=== PATIENT | female | born 1980 | race Caucasian/White ===

== ENCOUNTER 2017-09-08 05:03 | Emergency (ER) | payer OTHER ==
[~2017-09-08] VITALS: Ht 170.2 cm; Wt 90.7 kg
[~2017-09-08 05:03] MED LIST: ACE3 PO; AUG875 PO; AUGMENTIN; BUTA-324 PO; CLOM50TA18 PO; ESC10 PO; HCG INJECTION; IBU600 PO; IBU800 PO; LEVO50TA86 PO; MUCINEX; NORG1TAB74 PO; OMEP-218 PO; PANT20TA27 PO; TEM15 PO
--- NOTE | 2017-09-08 05:22 | ER Report ---
History and Physical Time Seen By MD: 05:21 Hx. of Stated Complaint: FEVER, FLU LIKE SYMPTOMS SINCE . EVERYONE AT [facility] WAS DIAGNOSISED WITH STREP HPI/ROS CHIEF COMPLAINT: Sore throat, fevers, body aches HISTORY OF PRESENT ILLNESS: 30 [id number] female ill for approximately 6 days. She was exposed to strep and numerous people just after . He's been having a sore throat for the last 3 days. She's having nasal congestion and purulent nasal discharge. She notes fever, bodyaches and gland swelling in her neck. She is having pain with swallowing. Patient notes severe nausea last night but did not vomit. Patient states she's been taking a lot of over- the-counter medications, Tylenol and ibuprofen without improvement of her symptoms. Patient denies dysuria. REVIEW OF SYSTEMS: Respiratory: As above. Cardiovascular: No chest pain, no palpitations. Gastrointestinal: No vomiting, no abdominal pain. Musculoskeletal: No back pain. Allergies: Coded Allergies: No Known Drug Allergies (Verified , 09/08/17) Home Meds Active Scripts Oxycodone Hcl/Acetaminophen (PERCOCET 5-325 MG TABLET) 1 Each Tablet, 1 EACH PO Q4-6H Y for pain or cough suppression, #10 Prov:IRENE ORTIZ DO 09/08/17 Promethazine Hcl (PROMETHAZINE HCL) 25 Mg Tablet, 25 MG PO Q4H Y for nausea or cough suppression, #14 TAB Prov:IRENE ORTIZ DO 09/08/17 Amoxicillin (AMOXICILLIN) 875 Mg Tablet, 1 TAB PO Q12H, #14 TAB Prov:IRENE ORTIZ DO 09/08/17 Reported Medications Norgestimate-Ethinyl Estradiol (SPRINTEC) 1 Each Tablet, 1 EACH PO 09/09/13 Levothyroxine Sodium (LEVOTHYROXINE SODIUM) 50 Mcg Tablet, 50 MCG PO QDAY 09/09/13 Pantoprazole Sodium (PANTOPRAZOLE SODIUM) 20 Mg Tablet.dr, 20 MG PO QDAY, TAB.SR TAKE 1 TABLET DAILY. 09/09/13 Ibuprofen (Motrin) 800 Mg Tab, 800 MG PO Q8H, #30 TAB 0 Refills TAKE 1 TABLET BY MOUTH EVERY 8 HOURS. TAKE WITH FOOD. 01/16/11 Escitalopram Oxalate (Lexapro) 10 Mg Tab, 10 MG PO QDAY, 0 Refills 05/20/09 Past Medical/Surgical History Patient has a past medical history of headaches, hypothyroidism, depression. Patient has a surgical history of a tonsillectomy and adenoidectomy. Reviewed Nurses Notes: Yes Old Medical Records Reviewed: Yes Hx Smoking: No Hx Substance Use Disorder: No Hx Alcohol Use: Yes (1 weekly) Constitutional Vital Sign - Last 24 Hours 09/08/17 09/08/17 09/08/17 09/08/17 05:09 05:12 05:30 05:35 Temp 98.5 Pulse 93 93 Resp 16 B/P (MAP) 149/89 (109) 149/89 139/94 (109) Pulse Ox 97 97 O2 Delivery Room Air 09/08/17 09/08/17 05:50 06:00 Pulse 91 B/P (MAP) ???/??? (8205) Pulse Ox 97 Physical Exam General Appearance: The patient is alert, has no immediate need for airway protection and no current signs of toxicity. Mild distress, vital signs stable , afebrile HEENT: Pupils equal and round no injection. TMs normal, oropharynx with moderate erythema, tonsillar hypertrophy, voice alteration secondary to throat swelling, anterior cervical chain lymphadenopathy noted Respiratory: Chest is non tender, lungs are clear to auscultation. No wheezing or rails Cardiac: regular rate and rhythm Gastrointestinal: Abdomen is soft and non tender, no masses, bowel sounds normal. Musculoskeletal: Neck: Neck is supple and non tender. Positive lymphadenopathy Extremities have full range of motion and are non tender. Skin: No rashes or lesions. DIFFERENTIAL DIAGNOSIS: After history and physical exam differential diagnosis was considered for adult fever including but not limited to viral syndromes including influenza, urinary tract infection, pneumonia, streptococcal pharyngitis and sepsis. Medical Decision Making Data Points Laboratory Hematology Test 09/08/17 05:14 Influenza Type A Antigen Negative (NEGATIVE) Influenza Type B Antigen Negative (NEGATIVE) Group A Streptococcus Screen Negative (NEGATIVE) Chemistry Test 09/08/17 05:14 Influenza Type A Antigen Negative (NEGATIVE) Influenza Type B Antigen Negative (NEGATIVE) Group A Streptococcus Screen Negative (NEGATIVE) ED Course/Re-evaluation ED Course Patient was admitted to an examination room. H&P was done. The differential diagnoses was considered. Patient with rapid flu and rapid streps which were unremarkable. She's feeling horrible. She has sinus congestion purulent drainage. She's also a productive cough of purulent sputum. She is placed on amoxicillin 875 mg by mouth twice a day. She's given Phenergan and Percocet for additional symptom relief. She is encouraged use Afrin and Nasonex to unplugged her sinus passages. Decision to Disposition Date: Sep 08, 2017 Decision to Disposition Time: 05:53 Depart Departure Latest Vital Signs Vital Signs Date Time Temp Pulse Resp B/P (MAP) Pulse Ox O2 Delivery O2 Flow Rate FiO2 09/08/17 06:00 ???/??? (1665) 09/08/17 05:50 91 97 09/08/17 05:12 98.5 16 Room Air Impression: Primary Impression: Pharyngitis Additional Impressions: Fever Nausea Condition: Improved Disposition: HOME OR SELF-CARE New Scripts Oxycodone Hcl/Acetaminophen (PERCOCET 5-325 MG TABLET) 1 Each Tablet 1 EACH PO Q4-6H Y for pain or cough suppression, #10 Prov: IRENE ORTIZ DO 09/08/17 Promethazine Hcl (PROMETHAZINE HCL) 25 Mg Tablet 25 MG PO Q4H Y for nausea or cough suppression, #14 TAB Prov: IRENE ORTIZ DO 09/08/17 Amoxicillin (AMOXICILLIN) 875 Mg Tablet 1 TAB PO Q12H, #14 TAB Prov: IRENE ORTIZ DO 09/08/17 Patient Instructions: Pharyngitis (ED) Additional Instructions: Continued DayQuil, NyQuil or similar products Take ibuprofen 200 mg 3-4 tablets 3 times a day Increase fluid intake Use Afrin and Nasonex nasal sprays to decongest your sinus cavities Follow-up with her primary care if unimproved in 3-5 days Problem Qualifiers Primary Impression: Pharyngitis Pharyngitis/tonsillitis etiology: unspecified etiology Qualified Codes: J02.9 - Acute pharyngitis, unspecified Additional Impressions: Fever Fever type: unspecified Qualified Codes: R50.9 - Fever, unspecified IRENE ORTIZ DO Sep 08, 2017 05:22
[2017-09-08] MEDS ORDERED: OXYC-865 PO (06:17)
[2017-09-08] MEDS ORDERED: AMOX875T60 PO (06:17)
[2017-09-08] MEDS ORDERED: PROM-110 PO (06:17)
[2017-09-08] MEDS ORDERED: PROMETHAZINE HCL 25 MG TAB TH 2 TAB/BOTTLE PO ONE (06:20)
[2017-09-08] MEDS ORDERED: oxyCODONE/ACETAMIN 5/325MG TH 2 TAB/BOTTLE PO ONE (06:20)
[2017-09-08] MEDS ORDERED: AMOXICILLIN 875 MG TAB PO ONE (06:20)
== END 2017-09-08 06:27 | disposition home or self-care (01) ==
LOC: ER 05:06
DX: J02.9 Acute pharyngitis, unspecified (principal); R50.9 Fever, unspecified; R11.0 Nausea
CPT/HCPCS: 87081; 87502; 87880; 99282

== ENCOUNTER → 2017-11-05 | Outpatient (CLI) | payer OTHER ==
[~2017-11-05] MED LIST changes: +AMOX875T60 PO; +OXYC-865 PO; +PROM-110 PO
--- NOTE | 2017-11-05 11:10 | RADIOLOGY IMAGING REPORT ---
FACILITY: [facility] PATIENT NAME: RONY FOX : [id number] MR: [id number] V: [id number] EXAM DATE: [id number] ORDERING PHYSICIAN: EJ WHIPPLE TECHNOLOGIST: Suzy Preston PROCEDURE:BILATERAL DIGITAL SCREENING MAMMOGRAM WITH CAD ASSISTED INTERPRETATION & 3D TOMOSYNTHESIS COMPARISON:None. INDICATIONS:SCREENING FINDINGS: Mildly heterogeneous fibroglandular tissue is seen throughout the breasts. There is no evidence of malignant appearing mass, malignant appearing calcifications or other secondary sign of malignancy in either breast. DIAGNOSTIC CATEGORY 1--NEGATIVE. RECOMMENDATIONS: CLINICAL EVALUATION. IMPRESSION: BIRADS 1: Negative No significant abnormality is seen Dictated by: Abby Coronado M.D. on 11/05/2017 at 9:10 Transcribed by: DIANA on 11/05/2017 at 9:58 Approved by: Abby Coronado M.D. on 11/05/2017 at 11:08 [facility]
== END ==
LOC: MAMO 02:09
PROVIDERS: ATTEND Family Medicine
DX: Z12.31 Encounter for screening mammogram for malignant neoplasm of breast (principal)
CPT/HCPCS: 77063; 77067

== ENCOUNTER 2018-01-13 01:48 | Emergency (ER) | payer OTHER ==
[2018-01-13] MEDS ORDERED: NS(*) 0.9% 1000 ML BAG 1,000 ML IV ONE (02:24)
[2018-01-13 02:33] LABS: PLATELET COUNT, AUTOMATED 252 K/uL (150-450)
--- NOTE | 2018-01-13 02:34 | ER Report ---
History and Physical Time Seen By MD: 02:24 Hx. of Stated Complaint: N/V/D X 2 WEEKS. NEW EPISODE STARTED YESTERDAY. HAD BLOODWAORK DONE YESTERDAY, NORMAL. ON DICYCLMINE 10MG FOR IT HPI/ROS CHIEF COMPLAINT: Abdominal pain and diarrhea HISTORY OF PRESENT ILLNESS: Patient is a 37-year-old local female ambulatory into the department complaining of recurrent episodes of abdominal pain and diarrhea. 1st episode was approximately 2 weeks ago. She awoke with cramping and watery diarrhea. Symptoms lasted approximately 24 hours and abated on their own. Approximately one week ago she had a 2nd episode very similarly. Awakening with abdominal cramping. Had multiple episodes of watery diarrhea and some nausea. And again symptoms abated on their own. She believes with that 2nd episode she may have had a fever. Then 36 hours ago, patient awoke with similar symptoms of abdominal cramping and pain and watery diarrhea. She describes the diarrhea as being "bilious" in color. There is no blood. This time it was associated with nausea as well as vomiting. It is very unusual for the patient to vomit so this almost [employer] Lucero. There's been only one episode of emesis. One day prior, a few hours after onset of symptoms, patient did see her primary provider. Her provider reportedly did an office patient test which was unremarkable." Did blood work" which patient states was also noted to be normal. Provider talked about doing CT scan for recurrences or considering doing a stool workup. Patient notes personal history of C. difficile in the past. She has been on antibiotics within the last 3-6 months. She does not know if this feels similar to what she has had in the past or not. She notes no fever with this episode. She has had one emesis. But what she has noted, this time, his symptoms are lasting longer than they have on the previous 2 episodes. Patient does note that between episodes all symptoms normalized including normal stools, no abdominal pain, and normal diet. She does believe the last 2 episodes were preceded by pizza the night before. Symptoms started with cramping and diarrhea and lower abdominal discomfort and subsequently she developed some nausea Denies potential for . has had vasectomy. Patient's last menstrual period 3 weeks ago. REVIEW OF SYSTEMS: Constitutional: Uncertain as to fever with 2nd episode but no fevers chills now Eyes: No discharge. ENT: No sore throat. Respiratory: No cough, or difficulty breathing. Patient has felt some subjective shortness of breath when she has had pain Cardiac: No chest pain, no palpitations. Gastrointestinal: as above Genitourinary: No hematuria. No other urinary symptoms Musculoskeletal: No back pain. Skin: No rashes. Neurological: No headache. Allergies: Coded Allergies: No Known Drug Allergies (Verified , 09/08/17) Home Meds Active Scripts Oxycodone Hcl/Acetaminophen (PERCOCET 5-325 MG TABLET) 1 Each Tablet, 1 EACH PO Q4-6H Y for pain or cough suppression, #10 Prov:IRENE ORTIZ DO 09/08/17 Promethazine Hcl (PROMETHAZINE HCL) 25 Mg Tablet, 25 MG PO Q4H Y for nausea or cough suppression, #14 TAB Prov:IRENE ORTIZ DO 09/08/17 Reported Medications Levothyroxine Sodium (LEVOTHYROXINE SODIUM) 50 Mcg Tablet, 50 MCG PO QDAY 09/09/13 Pantoprazole Sodium (PANTOPRAZOLE SODIUM) 20 Mg Tablet.dr, 20 MG PO QDAY, TAB.SR TAKE 1 TABLET DAILY. 09/09/13 Ibuprofen (Motrin) 800 Mg Tab, 800 MG PO Q8H, #30 TAB 0 Refills TAKE 1 TABLET BY MOUTH EVERY 8 HOURS. TAKE WITH FOOD. 01/16/11 Escitalopram Oxalate (Lexapro) 10 Mg Tab, 10 MG PO QDAY, 0 Refills 05/20/09 Discontinued Reported Medications Norgestimate-Ethinyl Estradiol (SPRINTEC) 1 Each Tablet, 1 EACH PO 09/09/13 Discontinued Scripts Amoxicillin (AMOXICILLIN) 875 Mg Tablet, 1 TAB PO Q12H, #14 TAB Prov:IRENE ORTIZ DO 09/08/17 Past Medical/Surgical History past medical history of headaches, hypothyroidism, depression. surgical history of a tonsillectomy and adenoidectomy. Reviewed Nurses Notes: Yes Hx Smoking: No Hx Substance Use Disorder: No Hx Alcohol Use: Yes (1 weekly) Family History of: Other (mother had history of gallbladder disease) Constitutional Vital Sign - Last 24 Hours 01/13/18 01/13/18 01/13/18 01/13/18 01:48 01:51 01:53 02:02 Temp 97.7 Pulse ??? 102 Resp 16 B/P (MAP) 139/99 136/99 (111) 125/89 (101) Pulse Ox 97 O2 Delivery Room Air 01/13/18 01/13/18 01/13/18 01/13/18 02:03 02:18 02:30 02:48 Pulse 98 93 ??? B/P (MAP) 123/93 (103) Pulse Ox 98 97 01/13/18 01/13/18 01/13/18 01/13/18 03:03 03:18 03:30 03:33 Pulse ??? 86 83 B/P (MAP) 122/89 (100) 105/72 (83) Pulse Ox 94 93 01/13/18 01/13/18 03:42 04:41 Pulse ??? 81 B/P (MAP) 120/87 (98) Pulse Ox 93 Physical Exam General Appearance: The patient is alert, has no immediate need for airway protection and no signs of toxicity. Patient is uncomfortable but not in acute distress Eyes: Pupils equal and round no pallor or injection. ENT, Mouth: Mucous membranes are moist. Tympanic membranes are normal bilaterally Neck: Supple without adenopathy Respiratory: There are no retractions, lungs are clear to auscultation. Cardiovascular: Regular rate and rhythm. Gastrointestinal: Abdomen is not distended. There is a supraumbilical old piercing scar noted. No other scars. Normoactive bowel sounds. Patient has diffuse lower quadrant tenderness in both the left and right lower quadrants. Right lower quadrant is more tender than the left. There is no significant guarding. There is no rebound. No referred tenderness. No CVA tenderness. Patient is also nontender to upper abdominal palpation. Neurological: Patient is alert and appropriate. Cranial nerves II through XII are grossly intact. No focal or cerebellar findings Skin: Warm and dry, no rashes. Capillary refills less than 2 seconds Musculoskeletal: Spontaneous movement of all extremities. No peripheral edema DIFFERENTIAL DIAGNOSIS: After history and physical exam differential diagnosis was considered for abdominal pain and history of diarrhea in a female including but not limited to: Gastroenteritis, colitis, diverticulitis, cholecystitis, pancreatitis, appendicitis, irritable bowel syndrome, ovarian cyst, pelvic inflammatory disease, ovarian torsion, urinary tract infection, and food reaction or intolerance. Medical Decision Making Data Points Result Diagram: 01/13/1820101/13/18201 Laboratory Hematology Test 01/13/18 02:02 01/13/18 03:11 Red Blood Count 5.88 M/uL (4.17-5.56) Mean Corpuscular Volume 85.4 fL (80.0-96.0) Mean Corpuscular Hemoglobin 29.5 pg (26.0-33.0) Mean Corpuscular Hemoglobin Concent 34.6 g/dL (32.0-36.0) Red Cell Distribution Width 12.8 % (11.5-14.5) Mean Platelet Volume 7.7 fL (7.2-11.1) Neutrophils (%) (Auto) 65.5 % (39.4-72.5) Lymphocytes (%) (Auto) 26.9 % (17.6-49.6) Monocytes (%) (Auto) 5.7 % (4.1-12.4) Eosinophils (%) (Auto) 1.4 % (0.4-6.7) Basophils (%) (Auto) 0.5 % (0.3-1.4) Nucleated RBC Relative Count (auto) 0.1 /100WBC Neutrophils # (Auto) 6.1 K/uL (2.0-7.4) Lymphocytes # (Auto) 2.5 K/uL (1.3-3.6) Monocytes # (Auto) 0.5 K/uL (0.3-1.0) Eosinophils # (Auto) 0.1 K/uL (0.0-0.5) Basophils # (Auto) 0.0 K/uL (0.0-0.1) Nucleated RBC Absolute Count (auto) 0.01 K/uL Urine Color Yellow Urine Clarity Cloudy Urine pH 5.0 pH (4.8-9.5) Urine Specific Hurst 1.024 Urine Protein 30 mg/dL (NEGATIVE) Urine Glucose (UA) Negative mg/dL (NEGATIVE) Urine Ketones Negative mg/dL (NEGATIVE) Urine Blood Negative (NEGATIVE) Urine Nitrite Negative (NEGATIVE) Urine Bilirubin Negative (NEGATIVE) Urine Urobilinogen Negative mg/dL (0.2-1.9) Urine Leukocyte Esterase Negative (NEGATIVE) Urine RBC 12 /HPF (0-2/HPF) Urine WBC 5 /HPF (0-5/HPF) Urine Squamous Epithelial Cells Many /LPF (</=FEW) Urine Calcium Oxalate Crystals Many /HPF (NONE) Urine Bacteria Few /HPF (NONE-FEW) Urine Hyaline Casts Few /LPF (NONE-FEW) Urine Mucus Few /HPF (NONE-FEW) Sodium Level 141 mmol/L (137-145) Potassium Level 3.5 mmol/L (3.5-5.0) Chloride Level 100 mmol/L (98-107) Carbon Dioxide Level 21 mmol/L (22-31) Blood Urea Nitrogen 12 mg/dl (7-18) Creatinine 0.80 mg/dl (0.52-1.04) Glomerular Filtration Rate Calc > 60.0 Random Glucose 111 mg/dl (75-110) Calcium Level 10.4 mg/dl (8.4-10.2) Total Bilirubin 0.8 mg/dl (0.2-1.3) Aspartate Amino Transf (AST/SGOT) 19 U/L (0-35) Alanine Aminotransferase (ALT/SGPT) 33 U/L (0-56) Alkaline Phosphatase 63 U/L (0-126) Total Protein 8.5 gm/dl (6.3-8.2) Albumin 4.9 g/dl (3.5-5.0) Amylase Level 68 U/L (0-110) Lipase 206 U/L (23-300) Human Chorionic Gonadotropin, Qual Negative (NEGATIVE) Clostridium Difficile Toxin A & B Negative Clostridium difficile Antigen Negative Chemistry Test 01/13/18 02:02 01/13/18 03:11 White Blood Count 9.3 k/uL (4.5-11.0) Red Blood Count 5.88 M/uL (4.17-5.56) Hemoglobin 17.4 g/dL (12.0-16.0) Hematocrit 50.3 % (34.0-47.0) Mean Corpuscular Volume 85.4 fL (80.0-96.0) Mean Corpuscular Hemoglobin 29.5 pg (26.0-33.0) Mean Corpuscular Hemoglobin Concent 34.6 g/dL (32.0-36.0) Red Cell Distribution Width 12.8 % (11.5-14.5) Platelet Count 252 K/uL (150-450) Mean Platelet Volume 7.7 fL (7.2-11.1) Neutrophils (%) (Auto) 65.5 % (39.4-72.5) Lymphocytes (%) (Auto) 26.9 % (17.6-49.6) Monocytes (%) (Auto) 5.7 % (4.1-12.4) Eosinophils (%) (Auto) 1.4 % (0.4-6.7) Basophils (%) (Auto) 0.5 % (0.3-1.4) Nucleated RBC Relative Count (auto) 0.1 /100WBC Neutrophils # (Auto) 6.1 K/uL (2.0-7.4) Lymphocytes # (Auto) 2.5 K/uL (1.3-3.6) Monocytes # (Auto) 0.5 K/uL (0.3-1.0) Eosinophils # (Auto) 0.1 K/uL (0.0-0.5) Basophils # (Auto) 0.0 K/uL (0.0-0.1) Nucleated RBC Absolute Count (auto) 0.01 K/uL Urine Color Yellow Urine Clarity Cloudy Urine pH 5.0 pH (4.8-9.5) Urine Specific Hurst 1.024 Urine Protein 30 mg/dL (NEGATIVE) Urine Glucose (UA) Negative mg/dL (NEGATIVE) Urine Ketones Negative mg/dL (NEGATIVE) Urine Blood Negative (NEGATIVE) Urine Nitrite Negative (NEGATIVE) Urine Bilirubin Negative (NEGATIVE) Urine Urobilinogen Negative mg/dL (0.2-1.9) Urine Leukocyte Esterase Negative (NEGATIVE) Urine RBC 12 /HPF (0-2/HPF) Urine WBC 5 /HPF (0-5/HPF) Urine Squamous Epithelial Cells Many /LPF (</=FEW) Urine Calcium Oxalate Crystals Many /HPF (NONE) Urine Bacteria Few /HPF (NONE-FEW) Urine Hyaline Casts Few /LPF (NONE-FEW) Urine Mucus Few /HPF (NONE-FEW) Glomerular Filtration Rate Calc > 60.0 Calcium Level 10.4 mg/dl (8.4-10.2) Total Bilirubin 0.8 mg/dl (0.2-1.3) Aspartate Amino Transf (AST/SGOT) 19 U/L (0-35) Alanine Aminotransferase (ALT/SGPT) 33 U/L (0-56) Alkaline Phosphatase 63 U/L (0-126) Total Protein 8.5 gm/dl (6.3-8.2) Albumin 4.9 g/dl (3.5-5.0) Amylase Level 68 U/L (0-110) Lipase 206 U/L (23-300) Human Chorionic Gonadotropin, Qual Negative (NEGATIVE) Clostridium Difficile Toxin A & B Negative Clostridium difficile Antigen Negative Urinalysis Test 01/13/18 02:02 Urine Color Yellow Urine Clarity Cloudy Urine pH 5.0 pH (4.8-9.5) Urine Specific Hurst 1.024 Urine Protein 30 mg/dL (NEGATIVE) Urine Glucose (UA) Negative mg/dL (NEGATIVE) Urine Ketones Negative mg/dL (NEGATIVE) Urine Blood Negative (NEGATIVE) Urine Nitrite Negative (NEGATIVE) Urine Bilirubin Negative (NEGATIVE) Urine Urobilinogen Negative mg/dL (0.2-1.9) Urine Leukocyte Esterase Negative (NEGATIVE) Urine RBC 12 /HPF (0-2/HPF) Urine WBC 5 /HPF (0-5/HPF) Urine Squamous Epithelial Cells Many /LPF (</=FEW) Urine Calcium Oxalate Crystals Many /HPF (NONE) Urine Bacteria Few /HPF (NONE-FEW) Urine Hyaline Casts Few /LPF (NONE-FEW) Urine Mucus Few /HPF (NONE-FEW) ED Course/Re-evaluation ED Course I reviewed the CT. I also reviewed the radiologist's reading. Radiologist noted amongst other things on the reading, the patient had a tampon in. I did not appreciate this on my visualization of the CT. I questioned the patient, and she states she does not have a tampon in. Nor does she have into anything intravaginally. Based on this concern, I did recommend doing a pelvic exam. Patient was comfortable with this. Pelvic exam: External genitalia are unremarkable. There is no vaginal discharge noted. On gentle speculum examination there is no evidence of foreign body. There is minimal thin white discharge noted. Cervix is unremarkable. There is no evidence of bleeding or irritation. There is no evidence of foreign body. On bimanual examination uterus is of unremarkable size. There is no cervical motion tenderness. No palpable masses I spoke again with the radiologist directly. I discussed my concerns on his reading versus my clinical exam. At this time patient reviewed the studies and realized that he had dictated the finding of the tampon present from review of her old CT. He will place an addendum to correct that. I subsequently spoke with the radiologist after he really looked at all films, and he noted that this patient had evidence of some fluid in the colon consistent with diarrhea. No evidence of vaginal concern or foreign body. There was finding of a small ovarian cyst that would be consistent with a follicular cyst. Otherwise as noted previously. Discussion with patient: I talked at length with the patient and her . At this time with the CT showing no evidence of significant structural acute concern, reassuring labs, no evidence of C. difficile, and patient subjectively feeling somewhat better after hydration, I think symptomatic care and close outpatient follow-up is reasonable. I have not recommended anything to stop the diarrhea. I would like patient to use Tylenol for comfort and increase fluids. I would like her to contact her primary care provider today and let her know that she was in the ER and did have the CT. I discussed that if this is a persisting issue, patient may need a GI referral and further GI workup as an outpatient. Certainly if any symptoms worsen or change including increased pain, fever, bloody diarrhea, the development of nausea or vomiting, or any other concerns, the patient should return for further ER evaluation. Re-evaluation Prior to discharge, patient's symptoms haven't improved somewhat on her own. Her abdomen remained soft and nontender. There is no evidence of peritoneal signs. And patient remained hemodynamically stable with normal vital signs Decision to Disposition Date: January 13, 2018 Decision to Disposition Time: 04:31 Depart Departure Latest Vital Signs Vital Signs Date Time Temp Pulse Resp B/P (MAP) Pulse Ox O2 Delivery O2 Flow Rate FiO2 01/13/18 04:41 81 120/87 (98) 01/13/18 03:42 93 01/13/18 01:51 97.7 16 Room Air Impression: Primary Impression: Diarrhea Additional Impression: Abdominal pain Condition: Improved Patient Instructions: Acute Diarrhea (ED) Additional Instructions: follow up with your primary care doctor. Please call today and them know about the ER visist, CT exam, and additional lab tests that were done Problem Qualifiers Primary Impression: Diarrhea Diarrhea type: presumed infectious Qualified Codes: R19.7 - Diarrhea, unspecified Additional Impression: Abdominal pain Abdominal location: lower abdomen, unspecified Qualified Codes: R10.30 - Lower abdominal pain, unspecified LORIN MITCHELL MD January 13, 2018 02:34
[2018-01-13] MEDS ORDERED: IOPAMIDOL 76% 75 ML INFUS BTL 75 ML ONE (02:36)
--- NOTE | 2018-01-13 03:32 | RADIOLOGY IMAGING REPORT ---
FACILITY: [facility] PATIENT NAME: Caity Richmond : 1980 MR: [id number] V: [id number] EXAM DATE: ORDERING PHYSICIAN: LORIN MITCHELL TECHNOLOGIST: Location: [facility] Patient: Caity Richmond : 1980 Visit/Account:[id number] Date of Sevice: 01/13/2018 ADDENDUM #1 Please disregard the original report, and consider this addendum the final report. COMPUTED TOMOGRAPHY ABDOMEN AND PELVIS WITH INTRAVENOUS CONTRAST DATE OF EXAM: 01/13/2018 2:24 AM INDICATION: Lower abdominal pain, diarrhea. COMPARISON: CT abdomen and pelvis 06/18/2011. MRI abdomen report 06/20/2011. TECHNIQUE: Contrast enhanced abdomen and pelvis CT performed during the injection of 75 ml of Isovue 370. Sagittal and coronal reconstructions were performed. One of the following dose optimization te chsarah was utilized in the performance of this exam: Automated exposure control; adjustment of the mA and/or kV according to the patient's size; or use of an iterative reconstruction technique. Spec [facility] details can be referenced in the facility's radiology CT exam operational policy. FINDINGS: Lung bases: Mild atelectasis. Liver and hepatic vasculature: Normal. Gallbladder and bile ducts: Normal. Spleen: Normal. Pancreas: Subcentimeter hypoattenuating lesion in the body of the pancreas is similar to prior and l ikely represents a cyst. Adrenals: Normal. Kidneys, ureters and bladder: Normal. Retroperitoneum and aorta: Normal. GI tract, mesentery and peritoneum: No evidence of obstruction. There is fluid throughout much of t he colon. The small bowel is grossly unremarkable. Normal appendix.. Normal appendix. Uterus and adnexa: Probable dominant follicle in the left ovary measuring 2.8 cm in diameter. Bones and soft tissues: No acute abnormality or suspicious lesion. IMPRESSION: 1. Suspected mild infectious or inflammatory colitis. 2. Probable pancreatic cyst, not significantly changed since 2010. Dr. Honeycutt discussed this case with LORIN MITCHELL on 01/13/2018 4:25 AM. Report Dictated By: Jonathan Honeycutt MD at 01/13/2018 4:18 AM Report E-Signed By: Jonathan Honeycutt MD at 01/13/2018 4:25 AM ORIGINAL REPORT COMPUTED TOMOGRAPHY ABDOMEN AND PELVIS WITH INTRAVENOUS CONTRAST DATE OF EXAM: 01/13/2018 2:24 AM INDICATION: Lower abdominal pain, diarrhea. COMPARISON: CT abdomen and pelvis 06/18/2011. MRI abdomen report 06/20/2011. TECHNIQUE: Contrast enhanced abdomen and pelvis CT performed during the injection of 75 ml of Isovue 370. Sagittal and coronal reconstructions were performed. One of the following dose optimization te chniques was utilized in the performance of this exam: Automated exposure control; adjustment of the mA and/or kV according to the patient's size; or use of an iterative reconstruction technique. Spec [facility] details can be referenced in the facility's radiology CT exam operational policy. FINDINGS: Lung bases: Mild atelectasis. Liver and hepatic vasculature: Normal. Gallbladder and bile ducts: Normal. Spleen: Normal. Pancreas: Subcentimeter hypoattenuating lesion in the body of the pancreas is similar to prior and l ikely represents a cyst. Adrenals: Normal. Kidneys, ureters and bladder: Normal. Retroperitoneum and aorta: Normal. GI tract, mesentery and peritoneum: Nonacute. Normal appendix. Uterus and adnexa: Normal. Tampon in place. Bones and soft tissues: No acute abnormality or suspicious lesion. IMPRESSION: 1. No apparent acute abnormality. 2. Probable pancreatic cyst, not significantly changed since 2010. Report Dictated By: Jonathan Honeycutt MD at 01/13/2018 3:16 AM Report E-Signed By: Jonathan Honeycutt MD at 01/13/2018 3:26 A
[2018-01-13 04:41] VITALS: BP 120/87
== END 2018-01-13 04:45 | disposition home or self-care (01) ==
LOC: ER 02:32
DX: R19.7 Diarrhea, unspecified (principal); R10.30 Lower abdominal pain, unspecified
CPT/HCPCS: 74177; 81001; 82150; 83690; 84703; 85025; 87045; 87177; 87324; 87449; 96360; 96361; 99284; J7030; Q9967; 82040; 82247; 82310; 82374; 82435; 82565; 82947; 84075; 84132; 84155; 84295; 84450; 84460; 84520

== ENCOUNTER 2019-01-27 00:22 | Observation (INO) | payer OTHER ==
[2019-01-27] VITALS (14 sets, daily range): BP systolic 106–127; BP diastolic 69–88
[~2019-01-27] VITALS: Ht 170.2 cm; Wt 88.5 kg
[~2019-01-27 00:22] MED LIST changes: +BUPR-126 PO; +CETI-176 PO; +CHOL10005 PO; +LAN30PT PO; +UBID100C48 PO; +cefOXitin/DEX(*) 2GM/50ML PREM 50 ML IVPB ONE
[2019-01-27] MEDS ORDERED: cefOXitin/DEX(*) 2GM/50ML PREM 50 ML IVPB ONE (05:15)
[2019-01-27] MEDS ORDERED: LIDOCAINE/SOD BICARB 8.4% SYR ID ONE (06:00)
[2019-01-27] MEDS ORDERED: NORMOSOL R SOLN(*) 1000 ML BAG 1,000 ML IV PRN (06:00)
[2019-01-27] MEDS ORDERED: MIDAZOLAM 2 MG/2 ML VIAL IVP PRN (06:00)
[2019-01-27] MEDS ORDERED: SCOP1PAT16 TD (06:20)
[2019-01-27 06:47] LABS: PLATELET COUNT, AUTOMATED 220 K/uL (150-450)
[2019-01-27] MEDS ORDERED: MANNITOL* (20%)100 GM/500ML BG 500 ML IVPB ONE (06:58)
[2019-01-27] MEDS ORDERED: ROPIVACAINE 0.2% 20 ML VIAL ONE (06:58)
[2019-01-27] MEDS ORDERED: fentaNYL CITR 100 MCG/2 ML AMP ONE ×2 (06:59→10:13)
[2019-01-27] MEDS ORDERED: ROCURONIUM BROM 10 MG/ML 10 ML ONE (07:00)
[2019-01-27] MEDS ORDERED: ONDANSETRON 4 MG/2 ML VIAL ONE (07:00)
[2019-01-27] MEDS ORDERED: LIDOCAINE MPF 1% 5 ML VIAL ONE (07:00)
[2019-01-27] MEDS ORDERED: PROPOFOL EMUL(*) 10MG/ML 20 ML 20 ML ONE (07:00)
[2019-01-27] MEDS ORDERED: DEXAMETHASONE SOD PHOS 10MG/ML ONE (07:00)
[2019-01-27] MEDS ORDERED: NS(*) 0.9% 100 ML BAG 100 ML ONE (07:46)
[2019-01-27] MEDS ORDERED: PHENYLEPHRINE 10 MG/1 ML VIAL ONE (08:10)
[2019-01-27] MEDS ORDERED: ePHEDrine 25 MG/5 ML DISP.SYR IVP ONE (08:10)
[2019-01-27] MEDS ORDERED: NS 0.9% 20 ML SDV 20 ML ONE (08:29)
[2019-01-27] MEDS ORDERED: HYDROmorphone HCL 2 MG/ML SDV ONE (08:29)
[2019-01-27] MEDS ORDERED: KETOROLAC 30 MG/ML VIAL ONE ×2 (08:48→12:10)
[2019-01-27] MEDS ORDERED: ACETAMINOPHEN(*)1000 MG/100 ML 100 ML IVPB ONE (09:00)
[2019-01-27] MEDS ORDERED: SUGAMMADEX SOD 500 MG/5 ML SDV ONE (09:38)
[2019-01-27] MEDS ORDERED: PROMETHAZINE 25 MG/ML 1 ML AMP IVP PRN (10:10)
[2019-01-27] MEDS ORDERED: ACETAMINOPHEN 325 MG TAB PO PRN (10:10)
[2019-01-27] MEDS ORDERED: ZOLPIDEM TARTRATE 10 MG TAB PO PRN (10:10)
[2019-01-27] MEDS ORDERED: ONDANSETRON 4 MG/2 ML VIAL IV PRN (10:10)
[2019-01-27] MEDS ORDERED: SIMETHICONE 80 MG CHEW CHEW PRN (10:10)
--- NOTE | 2019-01-27 10:11 | Post Operative Note ---
Operative Note - PATENT DRAFTER Operative Day Date: January 27, 2019 Time: 10:09 Physicians Surgeon: Gabriel Parcel Post Delivery: Monica Aguiar Anesthesia: GETA Diagnosis Pre-Op Diagnosis: Menorrhagia Dysmenorrhea Enlarged uterus Post-Op Diagnosis: same endometriosis uterine fibroids Procedure Findings: as above Procedure(s): RATLH/BS/MMC fulguration of endometriosis cystoscopy Specimen Removed:(Maybe N/A): uterus tubes Complications: none #[id number] Fluids Fluids: 1500 ml Estimated Blood Loss: minimal Dictated Date OP Note Dictated: January 27, 2019 Time OP Note Dictated: 10:11 Copies to: LEO RICCI MD ; LEO RICCI MD January 27, 2019 10:11
[2019-01-27] MEDS ORDERED: IBUP800T37 PO (10:14)
[2019-01-27] MEDS ORDERED: DOCU-416 PO (10:14)
[2019-01-27] MEDS ORDERED: OXYC-865 PO (10:14)
--- NOTE | 2019-01-27 11:19 | OPERATIVE REPORT 1 ---
EVENT DATE: January 27, 2019 SURGEON: Orlando Rios MD ANESTHESIOLOGIST: Fito Dela Cruz MD ANESTHESIA: General endotracheal. CLINICAL SUPPORT SPECIALIST: POWER Venegas PREOPERATIVE DIAGNOSIS 1. Menorrhagia. 2. Secondary dysmenorrhea. 3. Enlarged uterus. POSTOPERATIVE DIAGNOSIS 1. Menorrhagia. 2. Secondary dysmenorrhea. 3. Enlarged uterus. 4. Uterine fibroids. 5. Endometriosis of the pelvic peritoneum involving the posterior cul-de-sac, bilateral posterior ovarian fossa and both ovaries. Also, involving epiploic fat of the descending colon. PROCEDURE PERFORMED 1. Robotic-assisted total laparoscopic hysterectomy. 2. Bilateral salpingectomy. 3. Modified Aldana's culdoplasty. 4. Fulguration of endometriosis. 5. Diagnostic cystoscopy. ESTIMATED BLOOD LOSS Minimal. FLUIDS 15 ccs IV crystalloid. FINDINGS Upon inspecting the pelvis, there is immediately noted to be endometriosis involving both ovaries on the surface and both posterior ovarian fossa, both uterosacral ligaments but more prominently the left uterosacral ligament and the posterior cul-de-sac. There are small implants overlying the bladder and epiploic fat involving the descending colon. Fortunately, however, there were not significant adhesions. PROCEDURE IN DETAIL The patient was brought to the operating room with a working IV and placed in the dorsal supine position. She was placed under general endotracheal anesthesia and then prepped and draped in the usual sterile fashion. A weighted speculum was placed in the vagina and the cervix was grasped on the anterior lip with a single-tooth tenaculum. A medium size VCare uterine manipulator was selected. The cervix was carefully dilated in order to accommodate. The uterus sound was 10 cm. The VCare uterine manipulator was passed through the cervix into the uterus, bulb inflated and secured and VCare cup was sutured to the cervix. The NuMo cup was approximated against this cup and secured in place and Meadows catheter was placed to dependent drainage. Legs were brought back to the supine position and gloves were changed. All instruments were removed from the vagina. We proceeded with the procedure by measuring approximately 12 cm cephalad to the target anatomy, which ended up being 4 cm cephalad of the umbilicus. This area was infiltrated with 0.2% Naropin and an 8 mm stab incision was made. The anterior abdominal wall was elevated while Veress needle was passed through this incision into the abdomen. This was performed atraumatically and a negative pressure was observed while elevating the anterior abdominal wall, confirming intra-abdominal presence. Pneumoperitoneum was created to an intra-abdominal pressure of 20 mmHg. The Veress needle was then removed and an 8 mm bladeless robotic trocar was passed through the umbilical incision into the abdomen under direct visualization with the scope. Two additional 8 mm ports were placed left lateral of this incision, spaced at 8 cm apart as well as right lateral of the umbilical incision, also spaced 8 cm apart. These were all placed under direct visualization and under similar technique. They were performed without incident. The patient was moved to the Trendelenburg position. The bowel was swept out of the pelvis. The uterus was manipulated. The pelvis was surveyed and inspected with the above findings noted. At this point, the robot was brought overlying the patient and the #2 port was docked on the umbilical port and the camera was placed. Targeting procedure was performed and passed and all other instruments were then attached to the robotic arms and brought into the abdomen as follows: The monopolar scissor on robotic arm #3,. the ProGrasp on robotic arm #4 and the vessel sealer on robotic arm #1. There were no issues at this point and I scrubbed out and presented to the console for the hysterectomy, which proceeded as follows: The right fallopian tube was grasped and put on medial stretch, exposing the mesosalpinx. It was then dissected away using the vessel sealer up to the utero-ovarian ligament, which was cauterized and transected with the vessel sealer. The round ligament was then cauterized and transected with the vessel sealer, entering the broad ligament, which was into anterior and posterior leaflets. The anterior dissection was then performed, pushing the bladder away from the indentation of the VCare cup from below. Anterior colpotomy was performed to identify the cup and then the uterine vasculature was skeletonized posteriorly. The uterine vessels were then cauterized in a perpendicular fashion with the vessel sealer x2 and cut parallel bites along the lateral uterus was then performed down to and overlying the VCare cup and then attention was turned to the contralateral side. In likewise fashion, the fallopian tube was dissected away from its mesosalpinx connection up to the utero-ovarian ligament, which was cauterized and transected. The round ligament was then cauterized and transected with the vessel sealer and the broad ligament was entered, into anterior and posterior leaflets. The anterior dissection was completed and the posterior leaflet of the broad ligament was taken down to skeletonize the uterine vasculature. The uterine vessels were then cauterized in perpendicular fashion x2, transected and then parallel bites along the lateral uterus was performed down to and overlying the VCare cup. This completed the uterine vasculature dissection and the anterior colpotomy was then extended circumferentially using the monopolar scissor around the cervix through the uterosacral ligaments bilaterally and to the contralateral side, releasing the cervix and the uterus from its pelvic attachment. Attempts were then made to remove the uterus through the vagina. However, it proved to be too big in order to remove through the colpotomy incision. Therefore, it was pushed back in with a tenaculum, grasping the cervix. Using the ProGrasp and a fenestrated bipolar grasper, the uterus was bivalved using the monopolar scissors through the middle of the fundus and down along the length of the uterus to the contralateral side and splitting the cervix into two halves. This was taken down through the myometrium, observing uterine fibroids within through the endometrial cavity and down to the cervix. Once the uterus had been successfully bivalved and care had been taken to avoid injury to the surrounding tissues, each half of the uterus was then taken out through the vagina without difficulty. The pelvis was then copiously irrigated and suctioned dry and no visible bleeders at this point. Therefore, instruments were changed for suturing and 0 Vicryl was then used to suture ligate the vaginal angle to the ipsilateral uterosacral ligaments. This was performed on both sides without incident. 2-0 VLoc suture was then brought into the pelvis and used to suture the remaining vaginal cuff in a running nonlocking fashion with an excellent reapproximation of the skin edges, hemostasis and no visible complications. The pelvis was then copiously irrigated and suctioned dry. The remaining endometriotic implants were then cauterized and fulgurated in their koi location, taking care to avoid injury to surrounding essential tissues including the ureter and surrounding bowel. The most significant endometriosis implants were in the posterior cul-de-sac and on the left uterosacral ligament and left posterior ovarian fossa. On completion, all instruments were then removed. Pneumoperitoneum was suctioned out. Skin incisions were repaired with 4-0 Monocryl simple subdermal and covered with Dermabond skin adhesive. Diagnostic cystoscopy was performed, observing the entire bladder and was found to be without injury. Both ureteral orifices showed strong urine jets without any evidence of blockage or complication. Therefore, the bladder was drained. Meadows was left out and the vaginal cuff was inspected and found to be intact with good repair. No visible complications at this point. Therefore, the procedure was terminated. All instruments were removed. The patient was gently awakened from general anesthesia and taken to recovery in stable condition. Sponge, lap, needle and instrument counts were all correct x3. MTDD
[2019-01-27] MEDS ORDERED: METOPROLOL TART 5 MG/5 ML VIAL ONE (11:37)
[2019-01-27] MEDS: HYDROmorphone HCL 2 MG TAB PO PRN ×2 (12:42→17:14)
[2019-01-27] MEDS: DLR(*) 1000 ML BAG 1,000 ML IV PRN ×2 (13:01→19:12)
[2019-01-27] MEDS: KETOROLAC 30 MG/ML VIAL IVP SCH ×2 (15:23→20:27)
[2019-01-27] MEDS: FAMOTIDINE 20 MG TAB PO SCH (20:26)
[2019-01-27] MEDS: DOCUSATE CALCIUM 240 MG CAP PO SCH (20:26)
[2019-01-27] MEDS ORDERED: ESCITALOPRAM OXALATE 10 MG TAB PO SCH (21:00)
[2019-01-27] MEDS ORDERED: buPROPion SR 150 MG TABCR PO SCH (21:00)
[2019-01-27] MEDS: oxyCODON/ACET (*)5/325MG (CII) 1 TAB TAB PO PRN (23:27)
[2019-01-28 03:05] VITALS: BP 120/82
[2019-01-28] MEDS: KETOROLAC 30 MG/ML VIAL IVP SCH (03:05)
[2019-01-28] MEDS ORDERED: LEVOTHYROXINE SOD 0.05 MG TAB PO SCH (06:00)
[2019-01-28 06:09] LABS: PLATELET COUNT, AUTOMATED 214 K/uL (150-450)
[2019-01-28 07:30] VITALS: BP 115/77
[2019-01-28] MEDS: oxyCODON/ACET (*)5/325MG (CII) 1 TAB TAB PO PRN (07:33)
[2019-01-28] MEDS: DOCUSATE CALCIUM 240 MG CAP PO SCH (09:00)
[2019-01-28] MEDS: FAMOTIDINE 20 MG TAB PO SCH (09:00)
[2019-01-28] MEDS ORDERED: IBUPROFEN 800 MG TAB PO PRN (09:00)
[2019-01-28] MEDS ORDERED: INFLUENZA VIRUS VAC 0.5ML SYR IM ONLY ONE (10:10)
--- NOTE | 2019-01-28 14:00 | OB/GYN Discharge Summary ---
Discharge Summary Reason for Hosp/Final Diag: (1) Enlarged uterus (2) Menorrhagia (3) Uterine fibroid (4) Dysmenorrhea (5) Endometriosis (6) History of robot-assisted laparoscopic hysterectomy Hospital Course & Plan: Doing well POD #1. Pain controlled. She will discharge home today. Follow-up in the office 2 weeks post-op. Lates Vital Signs Vital Signs Date Time Temp Pulse Resp B/P (MAP) Pulse Ox O2 Delivery O2 Flow Rate FiO2 01/28/19 10:32 90 01/28/19 07:30 98.0 72 16 115/77 (90) Nasal Cannula 1.0 Weight (Pounds): 195 Result Diagram: 01/28/19 0536 Condition: Improved Discharge: Home, Self [facility] Meds Active Scripts Docusate Sodium (COLACE) 100 Mg Capsule, 100 MG PO BID PRN for CONSTIPATION for 10 Days, #20 CAPSULE Prov:SELINA RAINES 01/27/19 Oxycodone Hcl/Acetaminophen (PERCOCET 5-325 MG TABLET) 1 Each Tablet, 1 EACH PO Q4-6H PRN for PAIN, #20 TAB 0 Refills TAKE 1 TABLET NEEDED FOR PAIN - NO CLOSER THAN EVERY 4-6 HOURS. Prov:SELINA RAINES 01/27/19 Ibuprofen (IBUPROFEN) 800 Mg Tablet, 1 TAB PO Q8H, #30 TAB 0 Refills Take with food every 8 hours. Prov:SELINA RAINES 01/27/19 Reported Medications Ubidecarenone (COQ-10) 100 Mg Capsule, 200 MG PO QAM, CAPSULE 01/22/19 Cholecalciferol (Vitamin D3) (VITAMIN D3) 1,000 Unit Tablet, 84999 UNIT PO QAM, TAB 01/22/19 Lansoprazole (PREVACID) 30 Mg Capsule.dr, 30 MG PO QAM, CAP 01/22/19 Cetirizine Hcl (ZYRTEC) 10 Mg Tablet, 10 MG PO QHS, TAB 01/22/19 Bupropion Hcl (WELLBUTRIN SR) 150 Mg Tablet.er, 150 MG PO QHS, TAB 01/22/19 Levothyroxine Sodium (LEVOTHYROXINE SODIUM) 50 Mcg Tablet, 50 MCG PO QAM 09/09/13 Escitalopram Oxalate (Lexapro) 10 Mg Tab, 20 MG PO QHS, 0 Refills 9/12/09 Discontinued Reported Medications Scopolamine (Scopolamine) 1 Mg/3 Day Patch.td.3, 1 PATCH TD 01/27/19 Pantoprazole Sodium (PANTOPRAZOLE SODIUM) 20 Mg Tablet.dr, 20 MG PO QDAY, TAB.SR TAKE 1 TABLET DAILY. 09/09/13 Ibuprofen (Motrin) 800 Mg Tab, 800 MG PO Q8H, #30 TAB 0 Refills TAKE 1 TABLET BY MOUTH EVERY 8 HOURS. TAKE WITH FOOD. 01/16/11 Discontinued Scripts Oxycodone Hcl/Acetaminophen (PERCOCET 5-325 MG TABLET) 1 Each Tablet, 1 EACH PO Q4-6H PRN for pain or cough suppression, #10 Prov:IRENE ORTIZ DO 09/08/17 Promethazine Hcl (PROMETHAZINE HCL) 25 Mg Tablet, 25 MG PO Q4H PRN for nausea or cough suppression, #14 TAB Prov:IRENE ORTIZ DO 09/08/17 [phone], Dr. Rios [phone] Follow up in: 2 wks PO Discharge Diet: As Tolerates Discharge Activity: No Heavy Lifting x 6 wks, Pelvic Rest Special Instructions: Pelvic rest x 6 weeks. No driing on narcotic pain medication SELINA RAINES January 28, 2019 14:00
--- NOTE | 2019-01-28 14:05 | OB/GYN Progress Note ---
OB Subjective Progress Notes Subjective Feeling well without issues this morning. Some pain control and nausea yesterday, now resolved. Voiding well, passing flatus. Scant vaginal bleeding. Tolerating PO GI: NEG Nausea, NEG Vomiting : Voiding Well, Vaginal Bleeding, Scant Pain: Moderate, Tolerating PO Pain Meds OB Objective Physical Exam Vital Signs Date Time Temp Pulse Resp B/P (MAP) Pulse Ox O2 Delivery O2 Flow Rate FiO2 01/28/19 10:32 90 01/28/19 07:30 98.0 72 16 115/77 (90) Nasal Cannula 1.0 Intake and Output 01/28/19 07:00 Intake Total 1550 ml Output Total 2050 ml Balance -500 ml Intake Oral 300 ml IV Total 1250 ml Output Urine Total 2050 ml # Voids 3 General Appearance: Alert/Awake/No Acute Distress Neurological: No Gross deficits Eyes: Normal Extraocular Movement & Vison ENT: Normal Cardiovascular: Normal Rhythm & Peripheral Pulses Respiratory: No Respiratory Distress, Clear to Auscultation Abdomen: Bowel Sounds Present, Other (soft, non-distended. Tender over incisions as expected. Incisions are clean dry and intact with skin glue) Extremities: No Cyanosis,Clubbing or Edema Integumentary: Skin Intact without Lesions or Rash Psychological: Alert & Oriented X3, Appropriate Mood & Affect Result Diagram: 01/28/19 0536 Assessment and Plan Post Op Day: 1 A R SPECIALIST Assessment: Stable A R SPECIALIST Plan: Routine Post-Op Care Problems: (1) Enlarged uterus (2) Menorrhagia (3) Uterine fibroid (4) Dysmenorrhea (5) Endometriosis (6) History of robot-assisted laparoscopic hysterectomy Assessment & Plan: Doing well POD #1. Pain controlled. She will discharge home today. Follow-up in the office 2 weeks post-op. SELINA RAINES January 28, 2019 14:05
== END 2019-01-28 09:08 | disposition home or self-care (01) ==
LOC: OR 00:22 → PED 11:20
PROVIDERS: ADMIT Obstetrics & Gynecology; ATTEND Obstetrics & Gynecology
DX: N92.0 Excessive and frequent menstruation with regular cycle (principal); N94.5 Secondary dysmenorrhea; D25.9 Leiomyoma of uterus, unspecified
CPT/HCPCS: 36415; 58573; 84703; 85014; 85018; 85025; 88307; G0378; J0131; J0694; J1100; J1170; J1885; J2001; J2250; J2370; J2405; J2704; J2795; J3010; J7050; S2900

== ENCOUNTER 2019-02-02 18:26 | Emergency (ER) | payer OTHER ==
[~2019-02-02 18:26] MED LIST changes: +DOCU-416 PO; +IBUP800T37 PO; +SCOP1PAT16 TD; -cefOXitin/DEX(*) 2GM/50ML PREM 50 ML IVPB ONE
--- NOTE | 2019-02-02 18:40 | ER Report ---
History and Physical Time Seen By MD: 18:36 HPI/ROS CHIEF COMPLAINT: Lower abdominal pain HISTORY OF PRESENT ILLNESS: This is a 38-year-old female who presents to the emergency department for lower abdominal pain. Patient is status post hystere ctomy 6 days ago, according to the patient the surgery went well. She has been doing okay however over the last several days she's had an increase in abdominal pain most recently suprapubic pain, spoke with her IMAGING MANAGER, thought perhaps she was experiencing pain from a urinary tract infection, she will be started on Bactrim. She's had normal bowel movements, no dysuria, she also has bilateral flank pain. Patient is very tearful, very uncomfortable appearing. She also states that she's had fluctuations in temperature, up to 100 orally after taking Tylenol. She is also continued have aches and chills. She denies chest pain or shortness of breath. No nausea or vomiting. No erythema around the walters rgical sites. REVIEW OF SYSTEMS: Constitutional: As above. Eyes: No discharge. ENT: No sore throat. Cardiovascular: No chest pain, no palpitations. Respiratory: No cough, no shortness of breath. Gastrointestinal: As above. IMAGING MANAGER: As above. Genitourinary: No hematuria. Musculoskeletal: No back pain. Skin: No rashes. Neurological: No headache. Allergies: Coded Allergies: banana (Verified Allergy, Intermediate, 01/22/19) migraines cobalt chloride (Verified Allergy, Intermediate, 01/22/19) swelling and blisters cocamidopropyl betaine (Verified Allergy, Intermediate, 01/22/19) swelling and blisters fluconazole (Verified Allergy, Intermediate, 01/22/19) hives methylchloroisothiazolinone (Verified Allergy, Intermediate, 01/22/19) swelling and blisters methylisothiazolinone (Verified Allergy, Intermediate, 01/22/19) swelling and blisters Uncoded Allergies: shellfish (Allergy, Severe, 01/22/19) throat swelling, difficulty breathing fragrance mix 1 and 2 (Adverse Reaction, Intermediate, 01/22/19) swelling and blisters methyldibromo glutaronitrile (Adverse Reaction, Intermediate, 01/22/19) swelling and blisters ylang ylang (Adverse Reaction, Intermediate, 01/22/19) swelling and blisters Home Meds Active Scripts Docusate Sodium (COLACE) 100 Mg Capsule, 100 MG PO BID PRN for CONSTIPATION for 10 Days, #20 CAPSULE Prov:SELINA RAINES 01/27/19 Oxycodone Hcl/Acetaminophen (PERCOCET 5-325 MG TABLET) 1 Each Tablet, 1 EACH PO Q4-6H PRN for PAIN, #20 TAB 0 Refills TAKE 1 TABLET NEEDED FOR PAIN - NO CLOSER THAN EVERY 4-6 HOURS. Prov:SELINA RAINES 01/27/19 Ibuprofen (IBUPROFEN) 800 Mg Tablet, 1 TAB PO Q8H, #30 TAB 0 Refills Take with food every 8 hours. Prov:SELINA RAINES 01/27/19 Reported Medications Ubidecarenone (COQ-10) 100 Mg Capsule, 200 MG PO QAM, CAPSULE 01/22/19 Cholecalciferol (Vitamin D3) (VITAMIN D3) 1,000 Unit Tablet, 85764 UNIT PO QAM, TAB 01/22/19 Lansoprazole (PREVACID) 30 Mg Capsule.dr, 30 MG PO QAM, CAP 01/22/19 Cetirizine Hcl (ZYRTEC) 10 Mg Tablet, 10 MG PO QHS, TAB 01/22/19 Bupropion Hcl (WELLBUTRIN SR) 150 Mg Tablet.er, 150 MG PO QHS, TAB 01/22/19 Levothyroxine Sodium (LEVOTHYROXINE SODIUM) 50 Mcg Tablet, 50 MCG PO QAM 09/09/13 Escitalopram Oxalate (Lexapro) 10 Mg Tab, 20 MG PO QHS, 0 Refills 05/20/09 Discontinued Reported Medications Scopolamine (Scopolamine) 1 Mg/3 Day Patch.td.3, 1 PATCH TD 01/27/19 Past Medical/Surgical History The patient has a past medical and surgical history of tonsils and adenoid surgery, hypothyroidism, frequent headaches, hypercholesterolemia, GERD, D&C, recent hysterectomy, right wrist fracture, depression. Reviewed Nurses Notes: Yes Hx Smoking: No Smoking Status: Never Smoker Hx Substance Use Disorder: No Hx Alcohol Use: Yes Constitutional Vital Sign - Last 24 Hours 02/02/19 18:35 Temp 98.2 Pulse 96 Resp 18 B/P (MAP) 127/84 Pulse Ox 98 O2 Delivery Room Air Physical Exam General Appearance: The patient is alert, has no immediate need for airway protection and no signs of toxicity. Eyes: Pupils equal and round no pallor or injection. ENT, Mouth: Mucous membranes are moist. Respiratory: There are no retractions, lungs are clear to auscultation. Cardiovascular: Regular rate and rhythm. No murmurs, clicks or rubs. Gastrointestinal: Abdomen is soft, 5 small surgical incisions to the upper abdomen, no erythema or cellulitis, no drainage and intact. Nontender to the right and left upper quadrants, tenderness to the left lower and right lower quadrants with increased tenderness to the suprapubic region. no masses, bowel sounds normal. Neurological: Alert and oriented 4. Moving all extremities. Following all commands. No focal neuro deficits. Skin: Warm and dry, no rashes. Small amount of bruising noted to the abdomen around surgical sites otherwise unremarkable. Musculoskeletal: Neck is supple non tender. Extremities are nontender, nonswollen and have full range of motion. DIFFERENTIAL DIAGNOSIS: After history and physical exam differential diagnosis was considered for postsurgical complications, gastroenteritis, urinary tract infection. Medical Decision Making Data Points Result Diagram: 02/02/19190902/02/191909 Laboratory Hematology Test 02/02/19 18:33 02/02/19 19:10 Urine Color Straw Urine Clarity Clear Urine pH 6.0 pH (4.8-9.5) Urine Specific [place] 1.003 Urine Protein Negative mg/dL (NEGATIVE) Urine Glucose (UA) Negative mg/dL (NEGATIVE) Urine Ketones Negative mg/dL (NEGATIVE) Urine Blood Small (NEGATIVE) Urine Nitrite Negative (NEGATIVE) Urine Bilirubin Negative (NEGATIVE) Urine Urobilinogen Negative mg/dL (0.2-1.9) Urine Leukocyte Esterase Negative (NEGATIVE) Urine RBC None /HPF (0-2/HPF) Urine WBC None /HPF (0-5/HPF) Urine Squamous Epithelial Cells Many /LPF (</=FEW) Urine Bacteria Negative /HPF (NONE-FEW) Urine Mucus None /HPF (NONE-FEW) Red Blood Count 4.39 M/uL (4.17-5.56) Mean Corpuscular Volume 85.5 fL (80.0-96.0) Mean Corpuscular Hemoglobin 29.1 pg (26.0-33.0) Mean Corpuscular Hemoglobin Concent 34.0 g/dL (32.0-36.0) Red Cell Distribution Width 12.9 % (11.5-14.5) Mean Platelet Volume 7.7 fL (7.2-11.1) Neutrophils (%) (Auto) 76.5 % (39.4-72.5) Lymphocytes (%) (Auto) 15.0 % (17.6-49.6) Monocytes (%) (Auto) 6.8 % (4.1-12.4) Eosinophils (%) (Auto) 1.2 % (0.4-6.7) Basophils (%) (Auto) 0.5 % (0.3-1.4) Nucleated RBC Relative Count (auto) 0.1 /100WBC Neutrophils # (Auto) 6.8 K/uL (2.0-7.4) Lymphocytes # (Auto) 1.3 K/uL (1.3-3.6) Monocytes # (Auto) 0.6 K/uL (0.3-1.0) Eosinophils # (Auto) 0.1 K/uL (0.0-0.5) Basophils # (Auto) 0.0 K/uL (0.0-0.1) Nucleated RBC Absolute Count (auto) 0.01 K/uL Sodium Level 143 mmol/L (137-145) Potassium Level 3.8 mmol/L (3.5-5.0) Chloride Level 106 mmol/L (98-107) Carbon Dioxide Level 23 mmol/L (22-31) Blood Urea Nitrogen 9 mg/dl (7-18) Creatinine 0.80 mg/dl (0.52-1.04) Glomerular Filtration Rate Calc > 60.0 Random Glucose 122 mg/dl (75-110) Calcium Level 9.5 mg/dl (8.4-10.2) Total Bilirubin 0.2 mg/dl (0.2-1.3) Aspartate Amino Transf (AST/SGOT) 26 U/L (0-35) Alanine Aminotransferase (ALT/SGPT) 55 U/L (0-56) Alkaline Phosphatase 173 U/L (0-126) Total Protein 7.2 g/dl (6.3-8.2) Albumin 4.0 g/dl (3.5-5.0) Chemistry Test 02/02/19 18:33 02/02/19 19:10 Urine Color Straw Urine Clarity Clear Urine pH 6.0 pH (4.8-9.5) Urine Specific [place] 1.003 Urine Protein Negative mg/dL (NEGATIVE) Urine Glucose (UA) Negative mg/dL (NEGATIVE) Urine Ketones Negative mg/dL (NEGATIVE) Urine Blood Small (NEGATIVE) Urine Nitrite Negative (NEGATIVE) Urine Bilirubin Negative (NEGATIVE) Urine Urobilinogen Negative mg/dL (0.2-1.9) Urine Leukocyte Esterase Negative (NEGATIVE) Urine RBC None /HPF (0-2/HPF) Urine WBC None /HPF (0-5/HPF) Urine Squamous Epithelial Cells Many /LPF (</=FEW) Urine Bacteria Negative /HPF (NONE-FEW) Urine Mucus None /HPF (NONE-FEW) White Blood Count 8.9 k/uL (4.5-11.0) Red Blood Count 4.39 M/uL (4.17-5.56) Hemoglobin 12.8 g/dL (12.0-16.0) Hematocrit 37.6 % (34.0-47.0) Mean Corpuscular Volume 85.5 fL (80.0-96.0) Mean Corpuscular Hemoglobin 29.1 pg (26.0-33.0) Mean Corpuscular Hemoglobin Concent 34.0 g/dL (32.0-36.0) Red Cell Distribution Width 12.9 % (11.5-14.5) Platelet Count 302 K/uL (150-450) Mean Platelet Volume 7.7 fL (7.2-11.1) Neutrophils (%) (Auto) 76.5 % (39.4-72.5) Lymphocytes (%) (Auto) 15.0 % (17.6-49.6) Monocytes (%) (Auto) 6.8 % (4.1-12.4) Eosinophils (%) (Auto) 1.2 % (0.4-6.7) Basophils (%) (Auto) 0.5 % (0.3-1.4) Nucleated RBC Relative Count (auto) 0.1 /100WBC Neutrophils # (Auto) 6.8 K/uL (2.0-7.4) Lymphocytes # (Auto) 1.3 K/uL (1.3-3.6) Monocytes # (Auto) 0.6 K/uL (0.3-1.0) Eosinophils # (Auto) 0.1 K/uL (0.0-0.5) Basophils # (Auto) 0.0 K/uL (0.0-0.1) Nucleated RBC Absolute Count (auto) 0.01 K/uL Glomerular Filtration Rate Calc > 60.0 Calcium Level 9.5 mg/dl (8.4-10.2) Total Bilirubin 0.2 mg/dl (0.2-1.3) Aspartate Amino Transf (AST/SGOT) 26 U/L (0-35) Alanine Aminotransferase (ALT/SGPT) 55 U/L (0-56) Alkaline Phosphatase 173 U/L (0-126) Total Protein 7.2 g/dl (6.3-8.2) Albumin 4.0 g/dl (3.5-5.0) Urinalysis Test 02/02/19 18:33 Urine Color Straw Urine Clarity Clear Urine pH 6.0 pH (4.8-9.5) Urine Specific [place] 1.003 Urine Protein Negative mg/dL (NEGATIVE) Urine Glucose (UA) Negative mg/dL (NEGATIVE) Urine Ketones Negative mg/dL (NEGATIVE) Urine Blood Small (NEGATIVE) Urine Nitrite Negative (NEGATIVE) Urine Bilirubin Negative (NEGATIVE) Urine Urobilinogen Negative mg/dL (0.2-1.9) Urine Leukocyte Esterase Negative (NEGATIVE) Urine RBC None /HPF (0-2/HPF) Urine WBC None /HPF (0-5/HPF) Urine Squamous Epithelial Cells Many /LPF (</=FEW) Urine Bacteria Negative /HPF (NONE-FEW) Urine Mucus None /HPF (NONE-FEW) EKG/Imaging Imaging PATIENT NAME: Caity Richmond : 1980 MR: [id number] V: [id number] EXAM DATE: [id number] ORDERING PHYSICIAN: SHYLA MENDOZA TECHNOLOGIST: Location: [facility] Patient: Caity Richmond : 1980 Visit/Account:[id number] Date of Sevice: 02/02/2019 COMPUTED TOMOGRAPHY ABDOMEN AND PELVIS WITH INTRAVENOUS CONTRAST DATE OF EXAM: 02/02/2019 6:53 PM INDICATION: Abdominal pain, hysterectomy 6 days prior, fevers, chills. COMPARISON: CT abdomen and pelvis 01/13/2018 TECHNIQUE: Contrast enhanced abdomen and pelvis CT performed during the injection of 75 ml of Isovue 370. Sagittal and coronal reconstructions were performed. One of the following dose optimization techniques was utilized in the performance of this exam: Automated exposure control; adjustment of the mA and/or kV according to the patient's size; or use of an iterative reconstruction technique. Specific details can be referenced in the facility's radiology CT exam operational policy. FINDINGS: Lung bases: Minimal atelectasis. Liver and hepatic vasculature: Normal. Gallbladder and bile ducts: Normal. Spleen: Normal. Pancreas: Probable focal fat near the junction of the body and tail on image 41 series 2. No suspicious lesion. Adrenals: Normal. Kidneys, ureters and bladder: Kidneys are grossly normal. No hydronephrosis. Urinary bladder is largely decompressed. It contains a small amount of gas, possibly related to recent instrumentation. Retroperitoneum and aorta: Normal aorta. No retroperitoneal adenopathy. GI tract, mesentery and peritoneum: No evidence of obstruction. No pneumatosis or pneumoperitoneum. The appendix is likely normal. Uterus and adnexa: Patient has had a hysterectomy. Along the superior aspect of the vaginal cuff is an irregular fluid collection measuring 7.0 x 4.6 cm in the axial plane. It appears to have an organized rim, and measures simple fluid attenuation. The ovaries are likely grossly normal. Bones and soft tissues: Linear regions of mild fat stranding in the anterior abdominal wall likely related to trocar sites. There is also a small amount of gas in the left upper quadrant abdominal wall, likely within expected limits. No suspicious lesion. Hemangioma in the body of L3. IMPRESSION: 1. Interval hysterectomy with organized appearing fluid collection along the superior aspect of the vaginal cuff. This could represent postoperative seroma or evolving hematoma. Underlying infection is not excluded, though it does not contain any gas. Vaginal dehiscence not entirely excluded. Correlate with any suspicion of infection, consider gynecologic consultation if indicated. 2. Small amount of gas in the urinary bladder may be related to recent instrumentation. Correlate with urinalysis and any suspicion of urinary tract infection. Report Dictated By: Jonathan Honeycutt MD at 02/02/2019 9:27 PM Report E-Signed By: Jonathan Honeycutt MD at 02/02/2019 9:39 PM WSN:[id number] ED Course/Re-evaluation Clinical Indication for ER IV: Hydration, IV Access ED Course The patient was admitted to room. A history of physical were obtained. Diffe rential diagnoses were considered. An IV was started. A CBC, CMP were obtained.CBC unremarkable, chemistry unremarkable, urine showing small blood otherwise unremarkable. Patient was given 4 mg IV Zofran, 4 mg IV morphine. Patient states having moderate relief of her symptoms. Patient was given an a dditional 4 mg IV morphine, had significant relief of her symptoms. CT of the abdomen and pelvis showing Interval hysterectomy with organized appearing fluid collection along the superior aspect of the vaginal cuff. This could represent postoperative seroma or evolving hematoma. Underlying infection is not excluded, though it does not contain any gas. Vaginal dehiscence not entirely excluded. I did review the results with the patient, also spoke with Dr. Lewis as noted below, the patient does have a follow-up appointment scheduled already with Dr. Ricci tomorrow morning, I will send the patient home with pain medication and nausea medication with close follow-up tomorrow morning and a low threshold for returning to the emergency department should she develop any other concerning symptoms, patient is agreeable with this plan of care as well as her family is at the bedside. No other questions or concerns at this time and discharged home. 02/02/2019 9:54:28 pm I did speak with Dr. Lewis the IMAGING MANAGER on-call, he did recommend pain management for the patient and close follow-up with Dr. Ricci within next 1-3 days for reevaluation. Decision to Disposition Date: February 02, 2019 Decision to Disposition Time: 22:01 Depart Departure Latest Vital Signs Vital Signs Date Time Temp Pulse Resp B/P (MAP) Pulse Ox O2 Delivery O2 Flow Rate FiO2 02/02/19 18:35 98.2 96 18 127/84 98 Room Air Impression: Primary Impression: Seroma Additional Impression: History of robot-assisted laparoscopic hysterectomy Condition: Improved Disposition: HOME OR SELF-CARE Referrals: LEO RICCI MD 2 Days Patient Instructions: Laparoscopic Hysterectomy (GEN) Additional Instructions: The pain you are experiencing is likely from a seroma, which is not uncommon after surgery. Your laboratory studies did not show anything concerning today. Take Zofran as needed for nausea. In lieu of the ibuprofen you can take Aleve, 2 pills twice a day for the next 3- 4 days. For severe pain you can take 1-2 Percocet every 4-6 hours, to be aware that this can cause severe constipation, no drinking alcohol or driving or operating machinery while taking narcotics. Please keep your follow-up appointment with Dr. Ricci tomorrow for reevaluation. Drink plenty of water. Get plenty of rest. Return to the emergency department for any concerns or worsening symptoms. Problem Qualifiers SHYLA MENDOZA SORORITY SUPERVISOR-BC February 02, 2019 18:40
[2019-02-02] MEDS ORDERED: NS(*) 0.9% 1000 ML BAG 1,000 ML IV ONE (18:53)
[2019-02-02] MEDS ORDERED: ONDANSETRON 4 MG/2 ML VIAL IVP ONE (18:55)
[2019-02-02] MEDS ORDERED: MORPHINE 4 MG/ML SDV IVP ONE ×2 (18:55→20:30)
[2019-02-02 19:58] LABS: PLATELET COUNT, AUTOMATED 302 K/uL (150-450)
[2019-02-02] MEDS ORDERED: IOPAMIDOL 76% 100 ML INFUS BTL 100 ML ONE (20:17)
--- NOTE | 2019-02-02 21:42 | RADIOLOGY IMAGING REPORT ---
FACILITY: [facility] [place] PATIENT NAME: Caity Richmond : 1980 MR: [id number] V: [id number] EXAM DATE: ORDERING PHYSICIAN: SHYLA MENDOZA TECHNOLOGIST: Location: [facility] Patient: Caity Richmond : 1980 Visit/Account:[id number] Date of Sevice: 02/02/2019 COMPUTED TOMOGRAPHY ABDOMEN AND PELVIS WITH INTRAVENOUS CONTRAST DATE OF EXAM: 02/02/2019 6:53 PM INDICATION: Abdominal pain, hysterectomy 6 days prior, fevers, chills. COMPARISON: CT abdomen and pelvis 01/13/2018 TECHNIQUE: Contrast enhanced abdomen and pelvis CT performed during the injection of 75 ml of Isovue 370. Sagittal and coronal reconstructions were performed. One of the following dose optimization te chniques was utilized in the performance of this exam: Automated exposure control; adjustment of the mA and/or kV according to the patient's size; or use of an iterative reconstruction technique. Spec [facility] details can be referenced in the facility's radiology CT exam operational policy. FINDINGS: Lung bases: Minimal atelectasis. Liver and hepatic vasculature: Normal. Gallbladder and bile ducts: Normal. Spleen: Normal. Pancreas: Probable focal fat near the junction of the body and tail on image 41 series 2. No suspic ious lesion. Adrenals: Normal. Kidneys, ureters and bladder: Kidneys are grossly normal. No hydronephrosis. Urinary bladder is la rgely decompressed. It contains a small amount of gas, possibly related to recent instrumentation. Retroperitoneum and aorta: Normal aorta. No retroperitoneal adenopathy. GI tract, mesentery and peritoneum: No evidence of obstruction. No pneumatosis or pneumoperitoneum. The appendix is likely normal. Uterus and adnexa: Patient has had a hysterectomy. Along the superior aspect of the vaginal cuff is an irregular fluid collection measuring 7.0 x 4.6 cm in the axial plane. It appears to have an organ ized rim, and measures simple fluid attenuation. The ovaries are likely grossly normal. Bones and soft tissues: Linear regions of mild fat stranding in the anterior abdominal wall likely r elated to trocar sites. There is also a small amount of gas in the left upper quadrant abdominal wal l, likely within expected limits. No suspicious lesion. Hemangioma in the body of L3. IMPRESSION: 1. Interval hysterectomy with organized appearing fluid collection along the superior aspect of the vaginal cuff. This could represent postoperative seroma or evolving hematoma. Underlying infection is not excluded, though it does not contain any gas. Vaginal dehiscence not entirely excluded. Radha elate with any suspicion of infection, consider gynecologic consultation if indicated. 2. Small amount of gas in the urinary bladder may be related to recent instrumentation. Correlate w ith urinalysis and any suspicion of urinary tract infection. Report Dictated By: Jonathan Honeycutt MD at 02/02/2019 9:27 PM Report E-Signed By: Jonathan Honeycutt MD at 02/02/2019 9:39 PM WSN:[id number]
[2019-02-02] MEDS ORDERED: ONDANSETRON 4 MG ODT TH SL ONE (22:05)
[2019-02-02] MEDS ORDERED: oxyCODONE/ACETAMIN 5/325MG TH 2 TAB/BOTTLE PO ONE (22:05)
[2019-02-02 22:21] VITALS: BP 98/63
== END 2019-02-02 22:24 | disposition home or self-care (01) ==
LOC: ER 18:47
DX: N99.842 Postprocedural seroma of a genitourinary system organ or structure following a genitourinary system procedure (principal)
CPT/HCPCS: 74177; 81001; 85025; 87040; 96361; 96374; 96375; 96376; 99284; J2270; J2405; J7030; Q9967; S0119; 82040; 82247; 82310; 82374; 82435; 82565; 82947; 84075; 84132; 84155; 84295; 84450; 84460; 84520

== ENCOUNTER 2019-02-04 17:03 | Observation (INO) | payer OTHER ==
[~2019-02-04] VITALS: Ht 170.2 cm; Wt 88.5 kg
[2019-02-04] MEDS: PIPERACILLIN/TAZO*3.375GM VIAL 3.375 GM in NS(*) 0.9% 100 ML MINI-BAG 100 ML IVPB SCH
[2019-02-04 17:15] VITALS: BP 115/81
[2019-02-04] MEDS ORDERED: ONDANSETRON 4 MG ODT TABDP SL PRN (17:30)
[2019-02-04] MEDS ORDERED: ONDANSETRON HCL 4 MG/5 ML PO PRN (17:30)
[2019-02-04] MEDS ORDERED: ACETAMINOPHEN 500 MG TAB PO PRN (17:35)
[2019-02-04] MEDS ORDERED: ONDANSETRON 4 MG/2 ML VIAL IVP PRN (17:50)
[2019-02-04] MEDS ORDERED: PCA LOCKBOX KEYS XX PRN (17:55)
[2019-02-04] MEDS ORDERED: PATCH REMOVAL 1 EA TP SCH (18:00)
[2019-02-04] MEDS ORDERED: SCOPOLAMINE 1.5 MG PATCH TD ONE (18:00)
[2019-02-04] MEDS: DLR(*) 1000 ML BAG 1,000 ML IV SCH (18:02)
[2019-02-04] MEDS: FAMOTIDINE(*) 20MG/50ML PREMIX 50 ML IVPB SCH (18:02)
--- NOTE | 2019-02-04 18:03 | History & Physical ---
History of Present Illness Age of Patient: 38 Chief Complaint Postoperative wound infection History of Present Illness Caity had low grade fever following her robotic hysterectomy last Friday and called me over the weekend. Started her on Bactrim for a presumed UTI but she did not improve. I saw her in the office yesterday and switched her abx to Augmentin and Clinda after she had been to the ER the night before and had a CT scan done showing a 4x7 cm seroma over the vaginal cuff. Since the abx change she continues to have fever/chills and vomited earlier today. She is still in pain. I recommended she come to [facility] for re-admission for parenteral abx and diagnostic laparoscopy tomorrow with possible drainage of this seroma/hematoma. History Past Medical History: as per HPI Allergies: Coded Allergies: banana (Verified Allergy, Intermediate, 01/22/19) migraines cobalt chloride (Verified Allergy, Intermediate, 01/22/19) swelling and blisters cocamidopropyl betaine (Verified Allergy, Intermediate, 01/22/19) swelling and blisters fluconazole (Verified Allergy, Intermediate, 01/22/19) hives methylchloroisothiazolinone (Verified Allergy, Intermediate, 01/22/19) swelling and blisters methylisothiazolinone (Verified Allergy, Intermediate, 01/22/19) swelling and blisters Uncoded Allergies: shellfish (Allergy, Severe, 01/22/19) throat swelling, difficulty breathing fragrance mix 1 and 2 (Adverse Reaction, Intermediate, 01/22/19) swelling and blisters methyldibromo glutaronitrile (Adverse Reaction, Intermediate, 01/22/19) swelling and blisters ylang ylang (Adverse Reaction, Intermediate, 01/22/19) swelling and blisters Med Rec Home Meds Active Scripts Docusate Sodium (COLACE) 100 Mg Capsule, 100 MG PO BID PRN for CONSTIPATION for 10 Days, #20 CAPSULE Prov:SELINA RAINES 01/27/19 Oxycodone Hcl/Acetaminophen (PERCOCET 5-325 MG TABLET) 1 Each Tablet, 1 EACH PO Q4-6H PRN for PAIN, #20 TAB 0 Refills TAKE 1 TABLET NEEDED FOR PAIN - NO CLOSER THAN EVERY 4-6 HOURS. Prov:SELINA RAINES 01/27/19 Ibuprofen (IBUPROFEN) 800 Mg Tablet, 1 TAB PO Q8H, #30 TAB 0 Refills Take with food every 8 hours. Prov:SELINA RAINES 01/27/19 Reported Medications Ubidecarenone (COQ-10) 100 Mg Capsule, 200 MG PO QAM, CAPSULE 01/22/19 Cholecalciferol (Vitamin D3) (VITAMIN D3) 1,000 Unit Tablet, 67655 UNIT PO QAM, TAB 01/22/19 Lansoprazole (PREVACID) 30 Mg Capsule.dr, 30 MG PO QAM, CAP 01/22/19 Cetirizine Hcl (ZYRTEC) 10 Mg Tablet, 10 MG PO QHS, TAB 01/22/19 Bupropion Hcl (WELLBUTRIN SR) 150 Mg Tablet.er, 150 MG PO QHS, TAB 01/22/19 Levothyroxine Sodium (LEVOTHYROXINE SODIUM) 50 Mcg Tablet, 50 MCG PO QAM 09/09/13 Escitalopram Oxalate (Lexapro) 10 Mg Tab, 20 MG PO QHS, 0 Refills 05/20/09 Exam General Exam General Apperance: Alert/Awake/No Acute Distress, Other (looks pale and puny) Cardiovascular: Regular Rate and Rhythm Respiratory: No Respiratory Distress, Clear to Auscultation Abdomen: Other (soft, non-distended, mildly tender in lower abdomen) Integumentary: Skin Intact without Lesions or Rash Psychological: Alert & Oriented X3, Appropriate Mood & Affect Medical Decision Making Imaging Ultrasound/Imaging FACILITY: [facility] [place]IENT NAME: Caity Richmond : 1980 MR: [id number] V: [id number] EXAM DATE: ORDERING PHYSICIAN: SHYLA MENDOZA TECHNOLOGIST: Location: [facility] Patient: Caity Richmond : 1980 Visit/Account:[id number] Date of Sevice: 02/02/2019 COMPUTED TOMOGRAPHY ABDOMEN AND PELVIS WITH INTRAVENOUS CONTRAST DATE OF EXAM: 02/02/2019 6:53 PM INDICATION: Abdominal pain, hysterectomy 6 days prior, fevers, chills. COMPARISON: CT abdomen and pelvis 01/13/2018 TECHNIQUE: Contrast enhanced abdomen and pelvis CT performed during the injection of 75 ml of Isovue 370. Sagittal and coronal reconstructions were performed. One of the following dose optimization techniques was utilized in the performance of this exam: Automated exposure control; adjustment of the mA and/or kV according to the patient's size; or use of an iterative reconstruction technique. Specific details can be referenced in the facility's radiology CT exam operational policy. FINDINGS: Lung bases: Minimal atelectasis. Liver and hepatic vasculature: Normal. Gallbladder and bile ducts: Normal. Spleen: Normal. Pancreas: Probable focal fat near the junction of the body and tail on image 41 series 2. No suspicious lesion. Adrenals: Normal. Kidneys, ureters and bladder: Kidneys are grossly normal. No hydronephrosis. Urinary bladder is largely decompressed. It contains a small amount of gas, possibly related to recent instrumentation. Retroperitoneum and aorta: Normal aorta. No retroperitoneal adenopathy. GI tract, mesentery and peritoneum: No evidence of obstruction. No pneumatosis or pneumoperitoneum. The appendix is likely normal. Uterus and adnexa: Patient has had a hysterectomy. Along the superior aspect of the vaginal cuff is an irregular fluid collection measuring 7.0 x 4.6 cm in the axial plane. It appears to have an organized rim, and measures simple fluid attenuation. The ovaries are likely grossly normal. Bones and soft tissues: Linear regions of mild fat stranding in the anterior abdominal wall likely related to trocar sites. There is also a small amount of gas in the left upper quadrant abdominal wall, likely within expected limits. No suspicious lesion. Hemangioma in the body of L3. IMPRESSION: 1. Interval hysterectomy with organized appearing fluid collection along the superior aspect of the vaginal cuff. This could represent postoperative seroma or evolving hematoma. Underlying infection is not excluded, though it does not contain any gas. Vaginal dehiscence not entirely excluded. Correlate with any suspicion of infection, consider gynecologic consultation if indicated. 2. Small amount of gas in the urinary bladder may be related to recent inst rumentation. Correlate with urinalysis and any suspicion of urinary tract infection. Report Dictated By: Jonathan Honeycutt MD at 02/02/2019 9:27 PM Report E-Signed By: Jonathan Honeycutt MD at 02/02/2019 9:39 PM WSN:[id number] VTE Prophylasis: Adult Deep Vein Thrombosis/Pulmonary: No Pharmacological Contraindicati: Pt at Low Risk for VTE Mechanical Contraindications: Pt at Low Risk for VTE Assessment and Plan Problems: (1) Postoperative wound infection Assessment & Plan: will start on Zosyn and flagyl tonight for abx coverage. Plan NPO after midnight and diagnostic laparoscopy tomorrow to assess this seroma and probable drainage. Keep on abx x 24 hours afebrile. LEO RICCI MD February 04, 2019 18:03
[2019-02-04 18:16] LABS: PLATELET COUNT, AUTOMATED 274 K/uL (150-450)
[2019-02-04] MEDS: HYDROMORPHON PCA10MG/50ML(CII) 10 MG/50 ML PLAST..BAG IV PRN (19:00)
[2019-02-04 19:15] VITALS: BP 119/77
[2019-02-04] MEDS: metroNIDAZOLE* 500MG/100ML BAG 100 ML IVPB SCH (21:03)
[2019-02-04 23:15] VITALS: BP 112/74
[2019-02-05] VITALS (13 sets, daily range): BP systolic 99–117; BP diastolic 52–84
[2019-02-05] MEDS: DLR(*) 1000 ML BAG 1,000 ML IV SCH ×3 (04:30→17:30)
[2019-02-05] MEDS: PIPERACILLIN/TAZO*3.375GM VIAL 3.375 GM in NS(*) 0.9% 100 ML MINI-BAG 100 ML IVPB SCH ×3 (06:13→17:58)
[2019-02-05 06:38] LABS: PLATELET COUNT, AUTOMATED 266 K/uL (150-450)
[2019-02-05] MEDS ORDERED: ROPIVACAINE 0.2% 20 ML VIAL ONE (08:08)
--- NOTE | 2019-02-05 08:27 | OB/GYN Progress Note ---
OB Subjective Progress Notes Subjective Pt sleeping and report from her nurse and is that once she was comfortable last night she was able to sleep. No fever. WBC is still low. GI: NEG Nausea : Voiding Well OB Objective Physical Exam Vital Signs Date Time Temp Pulse Resp B/P (MAP) Pulse Ox O2 Delivery O2 Flow Rate FiO2 02/05/19 07:03 92 02/05/19 05:17 16 02/05/19 03:13 98.5 78 110/72 (85) 02/04/19 23:15 Room Air General Appearance: Other (sleeping; exam deferred) Result Diagram: 02/05/19 0558 02/05/19 0558 Assessment and Plan Problems: (1) Postoperative wound infection Assessment & Plan: Diagnostic laparoscopy today LEO RICCI MD February 05, 2019 08:27
[2019-02-05] MEDS: metroNIDAZOLE* 500MG/100ML BAG 100 ML IVPB SCH ×2 (09:47→22:00)
[2019-02-05] MEDS: FAMOTIDINE(*) 20MG/50ML PREMIX 50 ML IVPB SCH (10:50)
[2019-02-05] MEDS ORDERED: NORMOSOL R SOLN(*) 1000 ML BAG 1,000 ML IV ONE (11:39)
--- NOTE | 2019-02-05 12:07 | NUR ---
1130 sbharry from [facility]. pt placed in wheelchair and taken to preop room, family in room. pt sleepy
[2019-02-05] MEDS ORDERED: MIDAZOLAM 2 MG/2 ML VIAL IVP PRN (12:10)
--- NOTE | 2019-02-05 13:38 | Medical Nutrition Therapy ---
Nutrition Anthropometrics Height (Inches): 67.00 Height (Calculated Centimeters: 170.017334 Weight (Pounds): 195 Weight (Calculated Kilograms): 88.451 BMI: 30.5 Jai Nutrition Score: Adequate Jai Nutrition Risk Score: 21 Dietary Referral Nutrition Risk Factors: Nutrition Risk Comment: Physical Findings Physical Appearance: Obese BMI 30-39 Skin Appearance Skin Appearance: Abdominal Incision Edema Edema Location Modifier: Edema Location: Type of Edema: Degree of Edema: Gastrointestinal Symptoms GI Symtoms: Tube Present: Bowel Sounds: Recent Bowel Pattern: Stool Characteristics: Nutrition/Food History No Significant Nutr. HX Alcohol Use: Currently Nutritional Diagnosis Nutritional Risk Acuity 4: Stable Weight Nutritional Acuity: 4-Low Energy Requirement: 1770 (20kcal/kg) Protein Requirement: 71 (.8g/kg) Fluid Requirement: 1770 (1mL/kcal) Diet Type: Regular Nutrition Monitoring & Eval Nutrition Goals: Eat 75-100% Meal Nutrition Monitoring: Monitor intake. RD Patient Assessment Time: [address] Assessment Type: RD Screen Patient Nutrition Acuity: 4-Low Follow Up Date: Feb 12, 2019 Nutritional Comment: Pt admit for post-op wound infection. Pertinent PMH includes hypercholesterolemia,depression. Pt weight stable no meals recorded yet. Will continue to monitor intake. ANSON WEEKS February 05, 2019 13:32
[2019-02-05] MEDS ORDERED: PROPOFOL EMUL(*) 10MG/ML 20 ML 20 ML ONE (13:51)
[2019-02-05] MEDS ORDERED: ROCURONIUM BROM 10 MG/ML 10 ML ONE (13:51)
[2019-02-05] MEDS ORDERED: fentaNYL CITR 100 MCG/2 ML AMP ONE ×2 (14:19→15:16)
[2019-02-05] MEDS ORDERED: SUGAMMADEX SOD 200 MG/2 ML SDV ONE (14:58)
--- NOTE | 2019-02-05 15:19 | Post Operative Note ---
Operative Note - [facility] Operative Day Date: February 05, 2019 Time: 15:10 Physicians Surgeon: Gabriel Anesthesia: GETA Diagnosis Pre-Op Diagnosis: Postoperative seroma/hematoma, S/P RATLH with infection Post-Op Diagnosis: same Procedure Findings: Coagulated blood/ minor adhesions Intact wound Procedure(s): Laparoscopic lysis of adhesions and evacuation of seroma/hematoma and debridement Specimen Removed:(Maybe N/A): none Complications: none #[id number] Fluids Fluids: IV crystalloid Estimated Blood Loss: minimal Dictated Date OP Note Dictated: February 05, 2019 Time OP Note Dictated: 15:13 Copies to: LEO RICCI MD ; LEO RICCI MD February 05, 2019 15:19
--- NOTE | 2019-02-05 16:21 | OPERATIVE REPORT 1 ---
EVENT DATE: February 05, 2019 SURGEON: Orlando Rios MD ANESTHESIOLOGIST: Jun Nance MD ANESTHESIA: General LMA. PREOPERATIVE DIAGNOSES 1. Status post robotic-assisted total laparoscopic hysterectomy nine days ago. 2. Postoperative wound seroma/hematoma. 3. Postoperative wound infection. POSTOPERATIVE DIAGNOSES 1. Status post robotic-assisted total laparoscopic hysterectomy nine days ago. 2. Postoperative wound seroma/hematoma. 3. Postoperative wound infection. PROCEDURES PERFORMED 1. Diagnostic laparoscopy with debridement, evacuation, and removal of postoperative wound hematoma and seroma. 2. Laparoscopic adhesiolysis of minor adhesions. ESTIMATED BLOOD LOSS Minimal. FLUIDS IV crystalloid. FINDINGS Upon inspecting the pelvis, there was small bowel minor surface adhesions to the pelvis including the vaginal cuff and bilateral ovaries. There was a consolidated clot that had been dissolving including seroma-type fluid contained beneath this area directly overlying the vaginal cuff and encasing both ovaries. It was broken up easily and did not have any major pockets of fluid, but in general was consistent with resolving hematoma. PROCEDURE IN DETAIL The patient was brought to the operating room with a working IV. She was placed in the dorsal supine position and placed under general LMA anesthesia. She was then moved to the dorsal lithotomy position and prepped and draped in the usual sterile fashion. A sponge stick was placed in the vagina for assistance if needed. The legs were brought to the supine position, and we proceeded with laparoscopy by infiltrating the umbilicus with 0.2% Naropin. A 5 mm stab incision was made. A Veress needle was passed through the umbilicus into the abdomen while elevating the intra-abdominal wall in order to create a pneumoperitoneum to an intra-abdominal pressure of 20 mmHg. The Veress needle was then removed, and a 5 mm bladeless trocar was passed through the incision into the abdomen while stabilizing the anterior abdominal wall. This was performed without incident. Patient was moved to the Trendelenburg position, and two additional 5 mm ports were placed suprapubic and left lower lateral position under similar technique and without incident. A blunt probe and a suction court administrator were used to bluntly dissect the small bowel away from the pelvis and allow it to fall away in the Trendelenburg position. Both ovaries were freed from their inflammatory pelvic adhesions, and excess seroma fluid was suctioned out. Any loose tissue was debrided from the wound down to the vaginal cuff, which appeared to be intact. There were no major bleeders noted. The remaining tissue was removed. The entire area was suction irrigated multiple times until the bulk of the postoperative clot had been removed, and the entire area was cleaned up. Sulaiman hemostatic agent was applied to the entire area to help with any oozing from surfaces. Prior to this, the patient was tipped back into the reverse Trendelenburg in order to suction out all irrigation fluid and then tipped back into Trendelenburg to apply the Sulaiman hemostatic agent. Upon completion, the entire pelvis was inspected, and no other visible complications were observed. Therefore, the pneumoperitoneum was suctioned out. All instruments were removed from the patient's abdomen. Skin incisions were repaired with 4-0 Monocryl simple subdermal and covered with Dermabond skin adhesive. She tolerated the procedure well. Sponge, lap, needle, and instrument counts were all correct. She was taken to Recovery in stable condition. MIKE
[2019-02-05] MEDS: HYDROMORPHON PCA10MG/50ML(CII) 10 MG/50 ML PLAST..BAG IV PRN (17:15)
[2019-02-06] VITALS: BP 112/76
[2019-02-06 01:00] VITALS: BP 117/77
[2019-02-06] MEDS: PIPERACILLIN/TAZO*3.375GM VIAL 3.375 GM in NS(*) 0.9% 100 ML MINI-BAG 100 ML IVPB SCH ×3 (01:00→12:35)
[2019-02-06 03:00] VITALS: BP 99/61
[2019-02-06] MEDS: oxyCODON/ACET (*)5/325MG (CII) 1 TAB TAB PO PRN ×2 (03:25→07:33)
[2019-02-06 06:27] LABS: PLATELET COUNT, AUTOMATED 294 K/uL (150-450)
[2019-02-06] MEDS ORDERED: NS(*) 0.9% 100 ML BAG 100 ML ONE (06:30)
[2019-02-06 07:11] VITALS: BP 100/57
[2019-02-06] MEDS: FAMOTIDINE(*) 20MG/50ML PREMIX 50 ML IVPB SCH (09:43)
[2019-02-06] MEDS: metroNIDAZOLE* 500MG/100ML BAG 100 ML IVPB SCH (09:44)
--- NOTE | 2019-02-06 10:05 | OB/GYN Progress Note ---
OB Subjective Progress Notes Subjective Feeling much better. Up ambulating well and tolerating regular diet without nausea. Pain is much better and did well with Percocet last night. No fever. GI: NEG Nausea : Voiding Well Pain: Mild OB Objective Physical Exam Vital Signs Date Time Temp Pulse Resp B/P (MAP) Pulse Ox O2 Delivery O2 Flow Rate FiO2 02/06/19 07:12 72 97 02/06/19 07:11 97.9 100/57 (71) 02/06/19 03:00 18 02/06/19 03:00 Nasal Cannula 2.0 Intake and Output 02/06/19 07:00 Intake Total 6496 ml Output Total 0 ml Balance 6496 ml Intake Oral 700 ml IV Total 5196 ml Other 600 ml Output Estimated Blood Loss 0 ml # Voids 4 General Appearance: Alert/Awake/No Acute Distress, Other (sleeping; exam deferred) Eyes: Normal Extraocular Movement & Vison Cardiovascular: Normal Rhythm & Peripheral Pulses Respiratory: No Respiratory Distress, Clear to Auscultation Abdomen: Soft, Non-Tender, Non-Distended Incision: Clean, Dry, Intact, Dermabond Psychological: Alert & Oriented X3, Appropriate Mood & Affect Result Diagram: 02/06/19 0610 02/06/19 0610 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 Will allow next dose of Zosyn at noon and home after. Continue Augmentin and Clinda at home. Pt has supply of hydromorphone at home. f/u with me next . LEO RICCI MD Feb 06, 2019 10:05
--- NOTE | 2019-02-06 10:07 | OB/GYN Discharge Summary ---
Discharge Summary Reason for Hosp/Final Diag: (1) Postoperative wound infection Hospital Course & Plan: s/p drainage and I&D of wound hematoma. Will allow next dose of Zosyn at noon and home after. Continue Augmentin and Clinda at home. Pt has supply of hydromorphone at home. f/u with me next . Lates Vital Signs Vital Signs Date Time Temp Pulse Resp B/P (MAP) Pulse Ox O2 Delivery O2 Flow Rate FiO2 02/06/19 07:12 72 97 02/06/19 07:11 97.9 100/57 (71) 02/06/19 03:00 18 02/06/19 03:00 Nasal Cannula 2.0 Weight (Pounds): 195 Result Diagram: 02/06/1960902/06/19609 Condition: Improved Discharge: Home, Self Assisted Meds Active Scripts Docusate Sodium (COLACE) 100 Mg Capsule, 100 MG PO BID PRN for CONSTIPATION for 10 Days, #20 CAPSULE Prov:SELINA RAINES 01/27/19 Oxycodone Hcl/Acetaminophen (PERCOCET 5-325 MG TABLET) 1 Each Tablet, 1 EACH PO Q4-6H PRN for PAIN, #20 TAB 0 Refills TAKE 1 TABLET NEEDED FOR PAIN - NO CLOSER THAN EVERY 4-6 HOURS. Prov:SELINA RAINES 01/27/19 Ibuprofen (IBUPROFEN) 800 Mg Tablet, 1 TAB PO Q8H, #30 TAB 0 Refills Take with food every 8 hours. Prov:SELINA RAINES 01/27/19 Reported Medications Ubidecarenone (COQ-10) 100 Mg Capsule, 200 MG PO QAM, CAPSULE 01/22/19 Cholecalciferol (Vitamin D3) (VITAMIN D3) 1,000 Unit Tablet, 14114 UNIT PO QAM, TAB 01/22/19 Lansoprazole (PREVACID) 30 Mg Capsule.dr, 30 MG PO QAM, CAP 01/22/19 Cetirizine Hcl (ZYRTEC) 10 Mg Tablet, 10 MG PO QHS, TAB 01/22/19 Bupropion Hcl (WELLBUTRIN SR) 150 Mg Tablet.er, 150 MG PO QHS, TAB 01/22/19 Levothyroxine Sodium (LEVOTHYROXINE SODIUM) 50 Mcg Tablet, 50 MCG PO QAM 09/09/13 Escitalopram Oxalate (Lexapro) 10 Mg Tab, 20 MG PO QHS, 0 Refills 05/20/09 Follow up Referrals: PATIENT RELATIONS LIAISON - In One Week @ [facility] with LEO RIOS MD Follow up with: Dr. Rios [phone] Follow up in: 5-7 days Discharge Diet: As Tolerates Discharge Activity: As Tolerates, No Heavy Lifting x 6 wks, No Heavy Lifting > 10lb, Pelvic Rest Copies to: LEO RIOS MD ; LEO RIOS MD Feb 06, 2019 10:07
--- NOTE | 2019-02-06 11:02 | Antimicrobial Stewardship ---
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
[2019-02-07] MEDS ORDERED: PATCH REMOVAL 1 EA TP ONE (18:00)
== END 2019-02-06 10:06 | disposition home or self-care (01) ==
LOC: PED 17:03 → INTOOBSV 17:03
PROVIDERS: ADMIT Obstetrics & Gynecology; ATTEND Obstetrics & Gynecology
DX: L76.34 Postprocedural seroma of skin and subcutaneous tissue following other procedure (principal); T81.49XA Infection following a procedure, other surgical site, initial encounter
CPT/HCPCS: 36415; 57023; 85025; G0378; G0379; J1170; J2250; J2543; J2704; J2795; J3010; J3490; 82040; 82247; 82310; 82374; 82435; 82565; 82947; 84075; 84132; 84155; 84295; 84450; 84460; 84520